=== PATIENT | male | born 1970 | race Caucasian/White ===

== ENCOUNTER 2020-03-01 15:32 | Emergency (ER) | payer MEDICAID ==
[~2020-03-01] VITALS: Ht 182.9 cm; Wt 86.0 kg
[2020-03-01] MEDS ORDERED: MUPI22OI30 TOP (17:59)
[2020-03-01 18:29] VITALS: BP 124/80
== END 2020-03-01 18:31 | disposition home or self-care (01) ==
LOC: ER 15:35
DX: F15.10 Other stimulant abuse, uncomplicated (principal); R20.2 Paresthesia of skin; R05 Cough; J34.89 Other specified disorders of nose and nasal sinuses; F31.9 Bipolar disorder, unspecified; Z79.2 Long term (current) use of antibiotics
CPT/HCPCS: 71045; 99283